=== PATIENT | male | born 1940 | race Caucasian/White ===

== ENCOUNTER 2018-06-21 23:10 | Emergency (ER) | payer MEDICARE, BC ==
[~2018-06-21] VITALS: Ht 185.4 cm; Wt 79.4 kg
[2018-06-21] MEDS ORDERED: Lidocaine HCl 2% Jelly 5ml Tube TOPIC ONE ×2 (23:25→23:30)
--- NOTE | 2018-06-21 23:29 | Emergency Room Report ---
History of Present Illness General Chief Complaint: Male Urogenital Problems Source: Patient Present Illness HPI Is a 77-year-old male with a history of TURP procedure in the past. He presents with chief complaint of urinary retention. He said he hasn't had any urine output for 7 hours. Buckner pressure. Buckner pain. No fever chills but no nausea no vomiting. No trauma. He was sent in by his urologist Dr. Yeboah for a ny. Allergies: Coded Allergies: No Known Allergies (Unverified , 06/21/18) Patient History Past Medical History: see triage record, old chart reviewed, [place], CAD Past Surgical History: other Pertinent Family History: none Social History: Denies: smoking Immunizations: other Reviewed Nursing Documentation: PMH: Agreed; PSxH: Agreed Nursing Documentation-PMH Hx Cardiac Problems: Yes - [place] stent placement Review of Systems Eye: Denies: eye pain, blurred vision ENT: Denies: ear pain, nose congestion, throat swelling Respiratory: Denies: cough, shortness of breath Cardiovascular: Denies: chest pain, palpitations Gastrointestinal: Denies: abdominal pain, diarrhea, nausea, vomiting Genitourinary: Reports: retention Musculoskeletal: Denies: back pain, joint pain Skin: Denies: rash Neurological: Denies: headache, numbness Endocrine: Denies: increased thirst, increased urine Hematologic/Lymphatic: Denies: easy bruising All Other Systems: negative except mentioned in HPI Physical Exam Vital Signs Date Time Temp Pulse Resp B/P (MAP) Pulse Ox O2 Delivery O2 Flow Rate FiO2 06/21/18 23:14 97.4 74 16 132/82 93 Room Air 97.3 vitals normal Sp02 EP Interpretation: reviewed, normal General Appearance: well appearing, no apparent distress, alert Head: normocephalic, atraumatic Eyes: bilateral eye PERRL, bilateral eye EOMI ENT: hearing grossly normal, normal pharynx Neck: full range of motion, supple, no meningismus Respiratory: chest non-tender, lungs clear, normal breath sounds Cardiovascular #1: regular rate, rhythm, no murmur Gastrointestinal: normal bowel sounds, non tender, no mass, no organomegaly, no bruit, non-distended Musculoskeletal: back normal, gait/station normal, normal range of motion Psychiatric: mood/affect normal Skin: warm/dry Medical Decision Making Diagnostic Impression: Primary Impression: Acute urinary retention ER Course Patient presents with acute urinary retention. Urine output was about 650 mL. He felt better now. I discussed the case with his urologist who recommended keeping Ny in and start him on Macrobid. He will see the patient in the morning. Last Vital Signs Date Time Temp Pulse Resp B/P (MAP) Pulse Ox O2 Delivery O2 Flow Rate FiO2 06/21/18 23:14 97.4 74 16 132/82 93 Room Air 97.3 Status: improved Disposition: HOME, SELF-CARE Condition: Stable Scripts Nitrofurantoin Monohyd/M-Cryst (Nitrofurantoin [place]-Mcr 100 mg) 100 Mg Capsule 100 MG ORAL Q12H, #14 CAP Prov: Jace Canela MD 06/22/18 Referrals: Yovani Yeboah MD (PCP) Additional Instructions: Follow-up with your urologist as scheduled. Return if symptom worsen. Jace Canela MD Jun 21, 2018 23:29
[2018-06-21 23:30] VITALS: BP 132/82
[2018-06-22] MEDS ORDERED: MACROBID100 MG ORAL (00:11)
[2018-06-22 00:46] VITALS: BP 137/75
[2018-06-22 00:50] VITALS: BP 137/75
== END 2018-06-22 00:52 | disposition home or self-care (01) ==
LOC: EMR 23:25
DX: R33.9 Retention of urine, unspecified (principal); I25.2 Old myocardial infarction
CPT/HCPCS: 99282